=== PATIENT | male | born 1995 | race Caucasian/White ===

== ENCOUNTER 2019-01-10 02:14 | Emergency (ER) | payer OTHER ==
[2019-01-10] MEDS ORDERED: OXYCODONE-ACETAMINOPHEN 5-325 MG TABLET PO ONE (03:54)
[2019-01-10] MEDS ORDERED: LIDOCAINE 2% VISCOUS SOLN 20 ML UDCUP PO ONE (03:54)
[2019-01-10] MEDS ORDERED: CLINDAMYCIN HCL 150 MG CAPSULE PO ONE (03:54)
--- NOTE | 2019-01-10 03:59 | ER Document Report ---
HPI - HPI Patient complains to provider of: Dental pain Time Seen by Provider: 01/10/19 03:42 Onset/Duration: Persistent Quality of pain: Throbbing Pain Level: 5 Context: Patient presents complaining of dental pain for the past 3 days. Patient states that he had 3 wisdom teeth extracted 3 days ago. Patient states he finished his pain medication today. Patient complains of continued pain. Patient states that he did go to the [facility] as he is an [employer] and they called his surgeon and advised him to take Motrin. Patient feels that Motrin is not managing his pain symptoms and presents here now. Patient denies any facial swelling or fever. Associated Symptoms: Other - Dental pain. denies: Fever Exacerbated by: Denies Relieved by: Denies Similar symptoms previously: No Recently seen / treated by doctor: No - ROS ROS below otherwise negative: Yes Systems Reviewed and Negative: Yes All other systems reviewed and negative - CONSTITUTIONAL Constitutional: DENIES: Fever, Chills - EENT EENT: DENIES: Ear Pain - RESPIRATORY Respiratory: DENIES: Trouble Breathing, Coughing - GASTROINTESTINAL Gastrointestinal: DENIES: Nausea, Patient vomiting - DERM Skin Color: Normal Skin Problems: None Past Medical History - General Information source: Patient - Social History Smoking Status: Never Smoker Frequency of alcohol use: None Drug Abuse: None Occupation: Active duty Lives with: Spouse/Significant other Family History: Reviewed & Not Pertinent Patient has suicidal ideation: No Patient has homicidal ideation: No - Medical History Medical History: Negative Past Surgical History: Reports: Hx Oral Surgery, Hx Orthopedic Surgery Vertical Provider Document - CONSTITUTIONAL Agree With Documented VS: Yes Exam Limitations: No Limitations General Appearance: WD/WN, No Apparent Distress - HEENT HEENT: Atraumatic, Normocephalic Mouth Diagram: 1 - Tenderness. Extraction site, no erythema, no purulent drainage, no abscess, no trismus - NECK Neck: Normal Inspection, Supple. negative: Lymphadenopathy-Left, Lymphadenopathy-Right - RESPIRATORY Respiratory: Breath Sounds Normal, No Respiratory Distress - CARDIOVASCULAR Cardiovascular: Regular Rate, Regular Rhythm - MUSCULOSKELETAL/EXTREMETIES Musculoskeletal/Extremeties: MAEW - NEURO Level of Consciousness: Awake, Alert Motor/Sensory: No Motor Deficit - DERM Integumentary: Warm, Dry Course - Re-evaluation Re-evalutation: 01/10/19 03:56 Patient appears to be uncomfortable. Patient with short answers and occasionally cursing during interview. Patient reports that he went to the emergency department at the [facility] and they called his surgeon and he spoke with either his surgeon or someone who is on-call for his surgeon and they advised him to take Motrin. Patient denies any pain relief with ibuprofen. - Vital Signs Vital signs: Temp Pulse Resp BP Pulse Ox 97.5 F 64 18 125/74 100 01/10/19 02:18 01/10/19 02:18 01/10/19 02:18 01/10/19 02:18 01/10/19 02:18 Discharge - Discharge Clinical Impression: Pain, dental, hx dental extraction Condition: Stable Disposition: HOME, SELF-CARE Instructions: Clindamycin ([facility]), Oral Narcotic Medication ([facility]) Additional Instructions: Return immediately for any new or worsening symptoms Followup with your oral surgeon for repeat examination, call Friday for an dontae ointment. Continue to take your Motrin that you are prescribed by your oral surgeon Prescriptions: Clindamycin HCl [Cleocin 300 mg Capsule] 300 mg PO TID #21 capsule Oxycodone HCl/Acetaminophen [Percocet 5-325 mg Tablet] 1 tab PO ASDIR PRN #12 tablet PRN Reason: Referrals: [facility] [Provider Group] - Follow up as needed
[2019-01-10 04:16] VITALS: BP 128/83
== END 2019-01-10 04:16 | disposition home or self-care (01) ==
LOC: ER 02:14
DX: K08.89 Other specified disorders of teeth and supporting structures (principal); K08.409 Partial loss of teeth, unspecified cause, unspecified class
CPT/HCPCS: 99283; J3490